=== PATIENT | female | born 1995 | race Caucasian/White ===

== ENCOUNTER 2021-08-17 22:35 | Emergency (ER) | payer MEDICAID ==
[~2021-08-17] VITALS: Ht 172.7 cm; Wt 70.0 kg
[2021-08-17] MEDS ORDERED: OLANZAPINE 10 MG/VIAL IM ONE (23:30)
[2021-08-18 09:24] LABS: BASOPHILS % 0.4 % (0.0-2.0); HEMATOCRIT. 40.4 % (36.0-48.0); HEMOGLOBIN. 13.7 g/dL (12.0-16.0); MEAN CORPUSCULAR HEMOGLOBIN 31.4 pg (28.0-32.0); MEAN CORPUSCULAR VOLUME 92.4 fL (81.0-99.0); MONOCYTES % 10.2 % (2.0-8.0); NEUTROPHILS % 52.4 % (40.0-76.0); PLATELET 238 x1000/uL (130-400); RED BLOOD CELL COUNT 4.37 mill/uL (4.2-5.4); RED CELL DISTRIBUTION WIDTH 13.6 % (11.6-14.6)
[2021-08-18 09:34] LABS: CHLORIDE 109 mEq/L (98-107)
[2021-08-18 09:37] LABS: HCG SCREEN NEGATIVE
[2021-08-18 09:39] LABS: ETHANOL BLOOD < 10 mg/dL
[2021-08-18] MEDS: DIVALPROEX SODIUM 250MG DR TABLET PO SCH ×2 (11:00→21:52)
[2021-08-18] MEDS: OLANZAPINE 5MG TABLET PO SCH ×2 (11:00→21:52)
[2021-08-18 13:14] LABS: *BARBITURATES SCREEN URINE NEGATIVE (NEGATIVE); METHADONE URINE SCREEN NEGATIVE (NEGATIVE); OPIATES URINE SCREEN NEGATIVE (NEGATIVE); PHENCYCLIDINE URINE SCREEN NEGATIVE (NEGATIVE)
[2021-08-18 13:22] LABS: *AMPHETAMINES SCREEN URINE PRESUMTIVE POSITIVE (NEGATIVE); *BENZODIAZEPINES SCREEN URINE PRESUMTIVE POSITIVE (NEGATIVE); *COCAINE SCREEN URINE PRESUMTIVE POSITIVE (NEGATIVE); CANNABINOID URINE SCREEN PRESUMTIVE POSITIVE (NEGATIVE)
[2021-08-19] MEDS: DIVALPROEX SODIUM 250MG DR TABLET PO SCH (09:00)
[2021-08-19] MEDS: OLANZAPINE 5MG TABLET PO SCH (09:00)
[2021-08-19 13:06] VITALS: BP 107/73
== END 2021-08-19 13:27 | disposition short-term general hospital (02) ==
LOC: EDBD 22:35 → ER 22:35
DX: F31.31 Bipolar disorder, current episode depressed, mild (principal); R45.1 Restlessness and agitation; F20.9 Schizophrenia, unspecified; F14.10 Cocaine abuse, uncomplicated; F15.10 Other stimulant abuse, uncomplicated; F13.10 Sedative, hypnotic or anxiolytic abuse, uncomplicated; R40.0 Somnolence; F44.81 Dissociative identity disorder; F12.10 Cannabis abuse, uncomplicated; I49.1 Atrial premature depolarization; Z63.79 Other stressful life events affecting family and household; Z62.820 Parent-biological child conflict; Z91.14 Patient's other noncompliance with medication regimen; Z78.1 Physical restraint status
CPT/HCPCS: 36415; 93005; 96372; 99285; C9803; J3490; U0005

== ENCOUNTER 2022-01-30 10:35 | Emergency (ER) | payer MEDICAID ==
[~2022-01-30] VITALS: Ht 170.2 cm; Wt 68.0 kg
[2022-01-30 10:44] VITALS: BP 119/77
[2022-01-30 11:06] LABS: BASOPHILS % 0.5 % (0.0-2.0); EOSINOPHILS % 6.8 % (0.0-5.0); HEMATOCRIT. 39.6 % (36.0-48.0); HEMOGLOBIN. 13.3 g/dL (12.0-16.0); LYMPHOCYTES % 22.7 % (20.0-50.0); MEAN CORPUSCULAR HEMOGLOBIN 31.1 pg (28.0-32.0); MEAN CORPUSCULAR VOLUME 92.3 fL (81.0-99.0); MEAN PLATELET VOLUME 9.1 fl (7.4-10.4); PLATELET 257 x1000/uL (130-400); RED CELL DISTRIBUTION WIDTH 12.7 % (11.6-14.6)
[2022-01-30 11:10] LABS: CHLORIDE 106 mEq/L (98-107)
[2022-01-30] MEDS ORDERED: ALBUTEROL (0.083%) 2.5MG/3ML NEB HHN STA (11:10)
[2022-01-30] MEDS ORDERED: IPRATROPIUM BROMIDE (0.02%) 0.5MG/2.5ML NEB HHN STA (11:10)
[2022-01-30] MEDS ORDERED: PREDNISONE 20MG TABLET PO STA (11:10)
[2022-01-30 11:17] LABS: ETHANOL BLOOD < 10 mg/dL
[2022-01-30 11:18] LABS: HCG SCREEN NEGATIVE
== END 2022-01-30 11:00 | disposition left against medical advice (07) ==
LOC: ER 10:46
DX: J45.901 Unspecified asthma with (acute) exacerbation (principal); F20.9 Schizophrenia, unspecified
CPT/HCPCS: 36415; 80053; 80307; 80320; 80329; 84703; 85025; 93005; 99284; G0480